=== PATIENT | male | born 1980 | race Caucasian/White ===

== ENCOUNTER 2019-08-06 13:04 | Emergency (ER) | payer OTHER ==
[~2019-08-06] VITALS: Ht 180.3 cm; Wt 77.0 kg
[2019-08-06 13:06] VITALS: BP 101/91
[2019-08-06] MEDS ORDERED: TETanus/Pertussis (Acell)/Diphther VAC/PF (Tdap-Adult) 0.5ml syringe IM ONE (13:40)
[2019-08-06] MEDS ORDERED: bacitracin 15gm ointment TP ONE (13:40)
[2019-08-06] MEDS ORDERED: normal saline 1000ml 1,000 ML IV ONE (13:40)
[2019-08-06 14:53] LABS: CREATINE KINASE 643 U/L (39-308)
[2019-08-06 15:00] LABS: HIV ANTIBODY 1&2 RAPID NON-REACTIVE (Neg)
[2019-08-08 11:16] LABS: HBSAG SCREEN Negative (Negative); HEPATITIS C ANTIBODY 0.2 s/co ratio (0.0-0.9)
== END 2019-08-06 15:23 ==
LOC: ER 13:05
DX: S01.01XA Laceration without foreign body of scalp, initial encounter (principal); T75.4XXA Electrocution, initial encounter; F15.10 Other stimulant abuse, uncomplicated; R42 Dizziness and giddiness; F17.200 Nicotine dependence, unspecified, uncomplicated; Y04.0XXA Assault by unarmed brawl or fight, initial encounter; Y93.89 Activity, other specified; Y92.89 Other specified places as the place of occurrence of the external cause; Y99.9 Unspecified external cause status
CPT/HCPCS: 12002; 36415; 70450; 72125; 73080; 82550; 86703; 86706; 86803; 87340; 90471; 90715; 93005; 96360; 99284; J7030